=== PATIENT | female | born 1995 ===

== ENCOUNTER 2019-01-15 17:55 | Emergency (ER) | payer BC ==
--- NOTE | 2019-01-15 18:59 | UC ---
Head Injury HPI - HPI Summary HPI Summary: 23 year old female with no PMH, no anticoagulants, presents after hitting head on pot Friday. 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 no bruising, swelling, immediate pain, no open wounds/ sores. Denies neck pain/ back pain. Since has noted intermittent headache, no precipitating factors and intermittent short lived "dizziness" no loss of conciousness, no decreased muscle strength, no passing out. Denies prior consussions, no prior head trauma. ROS negative. Was told by friends to come get evaluated no vision changes - History Of Current Complaint Chief Complaint: UCHeadInjury Stated Complaint: HEAD INJURY Time Seen by Provider: 01/15/19 18:41 Hx Obtained From: Patient Hx Last Menstrual Period: [id number] ?: No Onset/Duration: Sudden Onset, Lasting Days - since Severity Initially: Mild Pain Intensity: 1 Pain Scale Used: 0-10 Numeric Character: Dull Aggravating Factor(s): Nothing Alleviating Factor(s): Nothing Associated Signs And Symptoms: Negative: LOC (Time In Secs./Mins/Hrs), LOC Duration Unknown - denies, Confusion, Memory Loss, Seizure, Epistaxis, Dental Malocclusion, Neck Pain, Nausea, Vomiting - Allergies/Home Medications Allergies/Adverse Reactions: Allergies Allergy/AdvReac Type Severity Reaction Status Date / Time No Known Allergies Allergy Verified 01/15/19 18:35 Home Medications: Home Medications Cholecalciferol TAB* [Vitamin D TAB*] 1,000 unit PO DAILY 01/15/19 [History Confirmed 01/15/19] NK [No Home Medications Reported] 01/15/19 [History Confirmed 01/15/19] PMH/Surg Hx/FS Hx/Imm Hx Previously Healthy: Yes - no prior head injuries - Surgical History Surgical History: None - Family History Known Family History: Positive: Non-Contributory - Social History Occupation: Employed Part-time Alcohol Use: None Substance Use Type: None Smoking Status (MU): Never Smoked Tobacco Review of Systems All Other Systems Reviewed And Are Negative: Yes Constitutional: Negative: Negative, Chills, Fatigue Eyes: Negative: Blurred Vision, Drainage, Eye Redness, Photophobia ENT: Negative: Sore Throat, Ear Ache, Nasal Discharge, Sinus Congestion, Sinus Pain/Tenderness Respiratory: Negative: Cough Neurological: Positive: Headache, Other - diziness. Negative: Weakness Is Patient Immunocompromised?: No Physical Exam Triage Information Reviewed: Yes Appearance: Well-Appearing, No Pain Distress, Well-Nourished Vital Signs: Initial Vital Signs Temp 98.5 F 01/15/19 18:30 Pulse 61 01/15/19 18:30 Resp 16 01/15/19 18:30 BP 108/71 01/15/19 18:30 Pulse Ox 100 01/15/19 18:30 Vital Signs Reviewed: Yes Eyes: Positive: Conjunctiva Clear ENT: Positive: Hearing grossly normal Neck: Positive: Supple, Nontender, No Lymphadenopathy, Other: - non- tender throughotu cervial, thoracic spine, no TTP over occiput. Negative: Nuchal Rigidity, Tenderness @, Enlarged Nodes @ Respiratory: Positive: Chest non-tender Musculoskeletal Exam: Normal Musculoskeletal: Positive: Strength Intact - LE/ UE grossly b/l equal, ROM Intact, No Edema Neurological: Positive: Other: - patellar reflex = B/L rhomber neg, able to stand heels, toes, walking, heel up kelly without difficulty, one leg staring OK. Psychological Exam: Normal Skin Exam: Normal Skin: Positive: Other - no open wounds/ sores, no edema noted over forehead where injury occurred, no ecchymosis, erythema. moderate TTP, no deformity noted. Head Injury Course/Dx - Course Course Of Treatment: contusion with possible concussion - Motrin/ naproxen as needed for pain, swelling - increase rest, relaxation over next several days - Work note declined - Increase fluid intake - If symptoms worsen, please go to ER for further evaluation. - Differential Dx/Diagnosis Differential Diagnosis/HQI/PQRI: Concussion With LOC, Concussion Without LOC, Contusion, Skull Fracture Provider Diagnosis: Contusion, Post concussion syndrome Discharge ED - Sign-Out/Discharge Documenting (check all that apply): Patient Departure All imaging exams completed and their final reports reviewed: No Studies - Discharge Plan Condition: Fair Disposition: HOME Patient Education Materials: Post Concussion Syndrome (ED), Contusion in Adults (ED) Referrals: [facility] [Outside] No Primary Care Phys,NOPCP [Primary Care Provider] - Additional Instructions: - Motrin/ naproxen as needed for pain, swelling - increase rest, relaxation over next several days - Work note declined - Increase fluid intake - If symptoms worsen, please go to ER for further evaluation. - Billing Disposition and Condition Condition: FAIR Disposition: Home
== END 2019-01-15 19:15 | disposition home or self-care (01) ==
LOC: UCEAST 17:55
DX: S00.83XA Contusion of other part of head, initial encounter (principal); F07.81 Postconcussional syndrome; W22.8XXA Striking against or struck by other objects, initial encounter; Y92.9 Unspecified place or not applicable
CPT/HCPCS: 99201; G0463